=== PATIENT | female | born 2000 | race Caucasian/White ===

== ENCOUNTER 2020-04-23 20:15 | Emergency (ER) | payer MEDICAID ==
[~2020-04-23] VITALS: Ht 160 cm; Wt 46.0 kg
[2020-04-24 01:26] LABS: BASOPHILS % 0.9 % (0.0-2.0); CHLORIDE 108 mEq/L (98-107); EOSINOPHILS % 1.2 % (0.0-5.0); HEMATOCRIT. 33.1 % (36.0-48.0); HEMOGLOBIN. 11.4 g/dL (12.0-16.0); LYMPHOCYTES % 38.6 % (20.0-50.0); MEAN CORPUSCULAR HEMOGLOBIN 29.1 pg (28.0-32.0); MEAN CORPUSCULAR VOLUME 84.6 fL (81.0-99.0); MEAN PLATELET VOLUME 8.4 fl (7.4-10.4); MONOCYTES % 7.6 % (2.0-8.0); NEUTROPHILS % 51.7 % (40.0-76.0); PLATELET 292 x1000/uL (130-400); RED BLOOD CELL COUNT 3.91 mill/uL (4.2-5.4); RED CELL DISTRIBUTION WIDTH 13.4 % (11.6-14.6)
[2020-04-24 01:36] LABS: B-HCG QUANTITATIVE < 1 mIU/mL (<3)
[2020-04-24 06:48] VITALS: BP 104/70
== END 2020-04-24 06:49 | disposition home or self-care (01) ==
LOC: ER 20:15
DX: N93.8 Other specified abnormal uterine and vaginal bleeding (principal); I49.9 Cardiac arrhythmia, unspecified
CPT/HCPCS: 36415; 80053; 84702; 85025; 86850; 86900; 93005; 99284

== ENCOUNTER 2023-12-14 14:13 | Emergency (ER) | payer MEDICAID ==
[~2023-12-14] VITALS: Ht 160 cm; Wt 56.0 kg
[2023-12-14 14:25] VITALS: BP 120/82; PULSE 96; RESP 18; TEMP 98.4; O2SAT 98
[2023-12-14] MEDS ORDERED: OXYC5TAB3 MT (15:10)
== END 2023-12-14 15:27 | disposition home or self-care (01) ==
LOC: ER 14:13
DX: R04.1 Hemorrhage from throat (principal)
CPT/HCPCS: 99283